=== PATIENT | female | born 1990 | race American Indian/Alaskan Native ===

== ENCOUNTER 2016-04-15 01:37 | Emergency (ER) | payer MEDICAID ==
[2016-04-15] MEDS ORDERED: TORADOL IM ONE (06:55)
[2016-04-15] MEDS ORDERED: TRIPLE ANTIBIOTIC TP ONE (07:21)
--- NOTE | 2016-04-15 07:26 | Emergency Department Report ---
Upper Extremity - HPI Chief Complaint: Extremity Injury, Upper Stated Complaint: BROKEN NAIL RT HAND Time Seen by Provider: 04/15/16 07:19 Upper Extremity: Right Little Finger Occurred When: Today Mechanism: Other (altercation) Severity: mild Symptoms: No Pain with Movement, No Deformity, No Limited Range of Movement, No Numbness, No Weakness, No Swelling, No Bruising/Ecchymosis, No Laceration or Abrasion Other History: Patient presents with right hand fifth digit false nail broken at the lunula, small part is still attached. ED Review of Systems ROS: Stated complaint: BROKEN NAIL RT HAND Other details as noted in HPI Constitutional: denies: chills, fever Respiratory: denies: cough, shortness of breath, wheezing Cardiovascular: denies: chest pain, palpitations Gastrointestinal: denies: abdominal pain, nausea, diarrhea Musculoskeletal: denies: back pain, joint swelling, arthralgia Skin: as per HPI Neurological: denies: headache, weakness, paresthesias ED Past Medical Hx - Past Medical History Previous Medical History?: Yes Hx Hypertension: No Hx Diabetes: No Hx Renal Disease: No Hx Sickle Cell Disease: No Hx Seizures: No Hx Asthma: No Hx HIV: No Additional medical history: gallstones - Surgical History Past Surgical History?: Yes Additional Surgical History: laparotomy, ectopic , ovarian cysts - Social History Smoking Status: Never Smoker - Medications Home Medications: Home Medications Medication Instructions Recorded Confirmed Last Taken Type Ondansetron [Zofran TAB] 4 mg PO Q8HR PRN #15 tablet 08/24/15 11/05/15 1 Day Ago Rx 4 Promethazine [Phenergan TAB] 25 mg PO Q6HR PRN #20 tab 11/05/15 Unknown Rx Ibuprofen [Motrin 800 MG tab] 800 mg PO Q8HR PRN #20 tablet 04/15/16 Unknown Rx Upper Extremity Exam - Exam General: Vital signs noted. No distress. Alert and acting appropriately. Head and Torso: No HEENT Abnormality, No Neck Tenderness, No Chest/Lungs Abnormality, No Abdominal Tenderness, No Back Tenderness Arm Exam: No Arm/Humerus Tenderness, No Arm Deformity Elbow: No Elbow Tenderness, No Normal Range of Motion in Elbow, No Elbow Deformity Forearm: No Forearm Tenderness, No Forearm Deformity, No Pain with Pronation, No Pain with Supination Wrist: Yes Normal ROM in Wrist, No Wrist Tenderness, No Wrist Deformity, No Snuffbox Tenderness, No Pain with Axial Thumb Compression Hand: Yes Normal ROM in Digit(s), No Hand Tenderness, No Hand Deformity, No Digit Tenderness, No Digit(s) Deformity, No Tendon Dysfunction CMS Exam: Yes Broken Skin (right hand 5th digit), No Normal Distal Pulses, No Normal Capillary Refill, No Normal Distal Sensation Hand L/R Back: 1 - nail is attached at the lateral aspect of the lunula, there is a small amount of dried blood present. Patient has false nails on all fingers. ED Course Vital Signs 04/15/16 04/15/16 01:45 05:27 Temperature 99.4 F Pulse Rate 86 71 Respiratory 18 16 Rate Blood Pressure 127/78 Blood Pressure 121/79 [Right] O2 Sat by Pulse 100 100 Oximetry ED Medical Decision Making - Medical Decision Making Patient presents with right hand fifth digit nail attached at the lateral aspect. Her finger was soaked in Betadine, nail tip was removed, antibiotic ointment was applied and finger was wrapped with sterile gauze. She is given a tetanus shot. I advised her to follow up if redness, swelling, fever, chills, pain medication unrelieving, swelling of her digit. - Differential Diagnosis nail avulsion, paronychia Critical Care Time: No Critical care attestation.: If time is entered above; I have spent that time in minutes in the direct care of this critically ill patient, excluding procedure time. ED Disposition Clinical Impression: Injury of nail Disposition: DISCHARGED TO HOME OR SELFCARE Is pt being admited?: No Does the pt Need Aspirin: No Condition: Stable Instructions: Acute Wound Care (ED) Additional Instructions: Keep finger clean, dry, covered with antibiotic ointment until healed. Avoid false nails. Return to the ED if redness, swelling, bruising, pain unrelieved by medication, fever, chills, nausea, vomiting. Prescriptions: Ibuprofen [Motrin 800 MG tab] 800 mg PO Q8HR PRN #20 tablet PRN Reason: Pain Referrals: PRIMARY CARE, [Primary Care Provider] - 3-5 Days Forms: Work/School Release Form(ED) Time of Disposition: 08:14
[2016-04-15] MEDS ORDERED: BOOSTRIX IM ONE (08:02)
[2016-04-15 08:30] VITALS: BP 105/77
== END 2016-04-15 08:29 | disposition home or self-care (01) ==
LOC: ED 01:37
DX: S69.91XA Unspecified injury of right wrist, hand and finger(s), initial encounter (principal); X58.XXXA Exposure to other specified factors, initial encounter; Y93.89 Activity, other specified; Y99.9 Unspecified external cause status; Y92.89 Other specified places as the place of occurrence of the external cause
CPT/HCPCS: 90471; 90715; 96372; 99283; J1885; A6250

== ENCOUNTER 2017-02-10 11:10 | Outpatient (CLI) | payer MEDICAID ==
--- NOTE | 2017-02-10 13:39 | Ultrasound Report ---
Pelvic and transvaginal sonography: History: Abdominal pain. Findings: Uterus measures 10.4 x 3.8 x 6.3 cm. Endometrial thickness is 8.3 mm. Right ovary 3.2 x 1.7 x 2.3 cm. Complex mass at right ovary measures 1.3 cm. Left ovary 2.8 x 1.6 x 2.9 cm. No mass. Impression: Complex mass right ovary. Minimal fluid cul-de-sac.
== END 2017-02-10 11:11 | disposition home or self-care (01) ==
LOC: US 11:10
PROVIDERS: ATTEND Family Medicine
DX: N83.8 Other noninflammatory disorders of ovary, fallopian tube and broad ligament (principal)
CPT/HCPCS: 76830; 76856